=== PATIENT | female | born 1965 | race Caucasian/White ===

== ENCOUNTER → 2020-11-12 | Outpatient (CLI) | payer OTHER ==
--- NOTE | 2020-11-12 11:14 | DIREP ---
PROCEDURE:XRAY HIP MIN 2VW-LT COMPARISON:None. INDICATIONS:M25.552 PAIN IN LEFT HIP FINDINGS: BONES:No acute fracture. JOINTS:Moderate degenerative changes of the left hip. SOFT TISSUES:No suspicious abnormality. OTHER:No additional findings. CONCLUSION: 1. No acute osseous abnormality. 2. Moderate degenerative changes of the left hip. Dictated by: Pradeep Carreno M.D. On 11/12/2020 at 11:12 AM
--- NOTE | 2020-11-12 11:16 | DIREP ---
PROCEDURE:XRAY HIP MIN 2VW-RT COMPARISON:[facility], , XRAY HIP MIN 2VW-LT, 11/12/2020, 10:56 AM. INDICATIONS:M25.551 PAIN IN RIGHT HIP FINDINGS: BONES:No acute fracture. JOINTS:Moderate to severe degenerative changes of the right hip with moderate degenerative changes of the left hip. This is evidenced by joint space narrowing and marginal osteophyte formation. SOFT TISSUES:No suspicious abnormality. OTHER:No additional findings. CONCLUSION: 1. No acute osseous abnormality. 2. Moderate to severe degenerative changes of the right hip with moderate degenerative changes of the left hip. Dictated by: Pradeep Carreno M.D. On 11/12/2020 at 11:13 AM
== END | disposition home or self-care (01) ==
LOC: RAD 10:45
PROVIDERS: ATTEND Nurse Practitioner Family
DX: M16.0 Bilateral primary osteoarthritis of hip (principal); M25.552 Pain in left hip; M25.551 Pain in right hip
CPT/HCPCS: 73502

== ENCOUNTER → 2020-11-21 | Outpatient (CLI) | payer OTHER | END | disposition home or self-care (01) | LOC: NPLAB 13:42 | PROVIDERS: ATTEND Nurse Practitioner Family | DX: N39.0 Urinary tract infection, site not specified (principal) | CPT/HCPCS: 87077; 87086; 87186 ==

== ENCOUNTER → 2020-11-28 | Outpatient (CLI) | payer OTHER ==
[~2020-11-28] MED LIST: LEXISCAN IV ONE
--- NOTE | 2020-11-28 12:45 | PCM.ECHO ---
APPROVED REPORT EXAM: Comprehensive 2D, Doppler, and color-flow Echocardiogram. Patient Location: OUT-PATIENT Indications Mitral Valve Prolapse Non-rheumatic mitral valve prolapse. 2D Dimensions LVOT Diameter 2.35 (1.8-2.4cm) LVEF(%) 52.60 (>50%) M-Mode Dimensions RVDd 1.60 (2.1-3.2cm) Left Atrium(MM) 4.15 (2.5-4.0cm) IVSd 0.95 (0.7-1.1cm) Aortic Root 2.55 (2.2-3.7cm) LVDd 5.40 (4.0-5.6cm) Aortic Cusp Exc 1.55 (1.5-2.0cm) PWd 0.85 (0.7-1.1cm) MV EPSS 0.58 (<0.5cm) IVSs 1.20 cm FS (%) 28.75 % LVDs 3.85 (2.0-3.8cm) ESV(Teich) 63.96 ml PWs 1.10 cm LVEF(%) 54.88 (>50%) Volumes Biplane 2D LV Volumes Biplane 2D LA Volumes LVEDv A4C 146.02 mL LA ESV Index LVESv A4C 69.22 mL Aortic Valve AoV Peak Andrez. 0.90 m/s AoV VTI 24.55 cm AO Peak GR. 3.45 mmHg AO Mean GR. 2.25 mmHg LVOT VTI 23.98 cm LVOT Peak Andrez. 0.90 m/s CARA(VTI)/BSA 4.24 cm2/m2 CARA (VTI) 4.24 cm2 AI P 1/2 Time 450.00 ms Mitral Valve MV E Velocity 1.25m/s MR Peak Gr. 6.30mmHg MV A Velocity 1.10m/s TDI Lateral E' P. V 0.11m/s Medial E' P. V 0.13m/s Pulmonary Valve PV Peak Velocity 0.60m/s PV Peak Grad. 1.40mmHg RVOT VTI 15.18cm Tricuspid Valve TR P. Velocity 2.40m/s RAP ESTIMATE 10.00mmHg TR Peak Gr. 23.83mmHg RVSP 33.83mmHg LEFT VENTRICLE The left ventricle is normal size. The left ventricular systolic function is normal. The left ventricular ejection fraction is within the normal range. There is normal left ventricular wall thickness. There is normal LV segmental wall motion. There is no ventricular septal defect visualized. No left ventricle thrombus noted on this study. LVEF is 55%. RIGHT VENTRICLE The right ventricle is normal size. The right ventricular systolic function is normal. There is normal right ventricular wall thickness. Pacemaker lead is present in the right ventricle. ATRIA The left atrium size is normal. The right atrium size is normal. Pacemaker lead is present in the right atrium. The interatrial septum is intact with no evidence for an atrial septal defect. AORTIC VALVE The aortic valve is normal in structure. There is no aortic valvular stenosis. Moderate aortic regurgitation. There is no aortic valvular vegetation. MITRAL VALVE The mitral valve is normal in structure. There is no mitral valve stenosis. There is no mitral valve regurgitation noted. There is no evidence of mitral valve vegetations. Mitral valve annuloplasty Sewing ring appears intact. TRICUSPID VALVE The tricuspid valve is normal in structure. There is no tricuspid valve stenosis. Severe tricuspid regurgitation. There is no tricuspid valve vegetations. PULMONIC VALVE The pulmonary valve is normal in structure. There is no pulmonic valvular stenosis. Severe pulmonic regurgitation. GREAT VESSELS The aortic root is normal in size. The pulmonary artery is normal. Aortic arch is not well visualized. The IVC is normal in size and collapses >50% with inspiration. PERICARDIUM There is no pericardial effusion. There is no pleural effusion. Other Information Study Quality: Fair <Conclusion> The left ventricular systolic function is normal. LVEF is 55%. Moderate aortic regurgitation. Mitral valve annuloplasty Sewing ring appears intact. Severe tricuspid regurgitation. Severe pulmonic regurgitation. Electronically signed by : LARRY ARREOLA. 11/28/2020 12:45:20
--- NOTE | 2020-11-28 13:52 | STRESS ---
DATE OF SERVICE: 11/28/2020 CARDIAC STRESS TEST INDICATION: Chest pain. Baseline EKG shows paced rhythm with premature ventricular complexes. Stress EKG shows normal sinus rhythm, unchanged from baseline. At the end of recovery, EKG shows paced rhythm, unchanged from baseline. Baseline blood pressure is 122/78 and remained the same during stress. At recovery, the blood pressure was 104/72. Baseline heart rate was 81 beats per minute and marissa to 82 beats per minute during stress. At recovery, the heart rate was 96 beats per minute. Blood pressure and heart rate were appropriate for stress. There were no significant symptoms noted during stress. There were no arrhythmias noted during stress. EKG portion of stress test is negative for myocardial ischemia. Nuclear images were obtained with a resting dose of 10.86 mCi technetium 99 sestamibi and a stress dose of 33.9 mCi technetium 99 sestamibi. Nuclear images show a large area of reversible perfusion defect involving the anterior wall and suggestive of myocardial ischemia. There is no evidence of myocardial infarction. Left ventricular ejection fraction is 59%. EDV is 91 mL, ESV 38 mL. The left ventricle is normal in size. Gated motion images shows normal wall motion across all segments of the left ventricle. TID is 1.25. There is no evidence of diaphragmatic attenuation artifact. IMPRESSION: 1. There is a large area of reversible perfusion defect involving the anterior wall and suggestive of myocardial ischemia. 2. There is no evidence of myocardial infarction. 3. This is an abnormal study. Recommend left heart catheterization. LARRY ARREOLA D.O. DR: SHERLYN/nery JOB# [id number]
== END | disposition home or self-care (01) ==
LOC: RAD 08:52
PROVIDERS: ATTEND Internal Medicine Interventional Cardiology
DX: Z01.818 Encounter for other preprocedural examination (principal); I08.3 Combined rheumatic disorders of mitral, aortic and tricuspid valves; Q25.49 Other congenital malformations of aorta
CPT/HCPCS: 78452; 93017; 93306; A9500; J2785

== ENCOUNTER 2020-12-13 10:56 | Day surgery (SDC) | payer OTHER ==
--- NOTE | 2020-12-04 11:48 | PCM.EKG ---
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
[2020-12-04 12:02] LABS: BASOPHIL % 0.5 % (0.0-0.2); EOSINOPHIL # 0.2 10^3/uL (0.0-0.2); EOSINOPHIL % 2.3 % (0.0-5.0); LYMPHOCYTES # 2.79 10^3/uL1 (1.0-4.8); LYMPHOCYTES % 42.1 % (24.0-44.0); MEAN CORP HGB 31.8 pg (26-34); MONOCYTES # 0.5 10^3/uL (0.3-0.8); MONOCYTES % 7.4 % (5.0-12.0); NEUTROPHIL # 3.2 10^3/uL (1.8-7.7); NEUTROPHILS % 47.5 % (41.0-85.0); PLATELET COUNT 271 10^3/uL (150-400); RED CELL DISTRIBUTION WIDTH 12.5 % (11.5-14.5)
[2020-12-04 12:17] LABS: CARBON DIOXIDE 30.2 mmol/L (20.0-32)
[2020-12-13] VITALS (15 sets, daily range): BP systolic 12–131; BP diastolic 55–76
[~2020-12-13] VITALS: Ht 176.5 cm; Wt 106.6 kg
[~2020-12-13 10:56] MED LIST changes: +FURO-81 PO; +HEPARIN ONE; -LEXISCAN IV ONE; +METO25TA4 PO; +NS 1000ML 1,000 ML ONE; +SUBLIMAZE ONE; +VERSED ONE; +XYLOCAINE ONE
[2020-12-13] MEDS: NS 1000ML 1,000 ML IV SCH (11:40)
[2020-12-13] MEDS ORDERED: MORPHINE SULFATE ONE (14:42)
--- NOTE | 2020-12-13 21:12 | CCRH ---
DATE OF SERVICE: 12/13/2020 INDICATION FOR PROCEDURE: Abnormal cardiac stress test. HISTORY: This is a 55-year-old female who was initially seen in the outpatient setting with symptoms of chest discomfort. She underwent cardiac ischemic workup, which was noted to be abnormal. In view of this, she was set up for cardiac catheterization. Informed consents were obtained. PROCEDURES PERFORMED: 1. Selective coronary angiography. 2. Left ventriculography. 3. Hemostasis established using a TR band. DESCRIPTION OF PROCEDURE: Access was obtained using a 6-Hebrew glide sheath to cannulate the right radial artery. Diagnostic angiography was then carried out using a [place] 4 catheter to engage the left main. The left main was noted to be long and angiographically normal. It bifurcates into left anterior descending artery and the left circumflex artery. The left anterior descending artery is noted to have mild luminal irregularities. It runs in the interventricular groove to the apex to form a type 2 LAD. It gives off 1 large caliber diagonal branch that is noted to have mild luminal irregularities. The left circumflex artery is noted to be nondominant with mild luminal irregularities. It gives off a large caliber obtuse marginal 1 branch that is noted to have mild luminal irregularities. The [place] 4 catheter was then used to engage the RCA. RCA angiography showed a dominant RCA with mild luminal irregularities. The RCA bifurcates distally to an RPL and RPDA branch, both noted to have mild luminal irregularities. The [place] 4 catheter was then exchanged for a pigtail catheter, which was used to cross the aortic valve into the left ventricle. Left ventriculography was performed. LVEF was noted to be 65%. LVEDP was noted to be 9. Upon pullback of the pigtail catheter, there was no gradient across the aortic valve. The pigtail catheter was then taken out and hemostasis was established using a TR band. 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 There were no complications. IMPRESSION: 1. Nonobstructive coronary artery disease. 2. Selective coronary angiography. 3. Left ventriculography. 4. LVEF of 65%. 5. LVEDP of 9. 6. Hemostasis established using a TR band. RECOMMENDATIONS: No coronary intervention is necessary at this time. Lifestyle modification factors have been strongly advised. She will be discharged home today to follow up with me in the office in 2 weeks. LARRY ARREOLA D.O. DR: Santo JOB# [id number]
== END 2020-12-13 18:20 | disposition home or self-care (01) ==
LOC: CCL 10:56
PROVIDERS: ATTEND Internal Medicine Interventional Cardiology
DX: I25.10 Atherosclerotic heart disease of native coronary artery without angina pectoris (principal); I10 Essential (primary) hypertension; I87.2 Venous insufficiency (chronic) (peripheral); I48.0 Paroxysmal atrial fibrillation; M25.551 Pain in right hip; M25.552 Pain in left hip; E66.9 Obesity, unspecified; I37.1 Nonrheumatic pulmonary valve insufficiency; Z88.2 Allergy status to sulfonamides; Z82.5 Family history of asthma and other chronic lower respiratory diseases; Z80.9 Family history of malignant neoplasm, unspecified; Z68.34 Body mass index [BMI] 34.0-34.9, adult; Z79.899 Other long term (current) drug therapy; Z98.51 Tubal ligation status
CPT/HCPCS: 36415; 80053; 85025; 85610; 85730; 93005; 93458; 99152; 99153; C1887 ×2; C1894; J1644 ×2; J2250; J2270; J3010; J7030; Q9967; C1769

== ENCOUNTER 2021-04-25 07:00 | Day surgery (SDC) | payer OTHER ==
[2021-04-23 09:55] VITALS: BP 111/75
--- NOTE | 2021-04-23 10:09 | PCM.EKG ---
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
[2021-04-23 10:17] LABS: BASOPHIL % 0.5 % (0.0-0.2); EOSINOPHIL # 0.1 10^3/uL (0.0-0.2); EOSINOPHIL % 1.8 % (0.0-5.0); LYMPHOCYTES # 2.29 10^3/uL1 (1.0-4.8); LYMPHOCYTES % 36.9 % (24.0-44.0); MEAN CORP HGB 30.5 pg (26-34); MONOCYTES # 0.5 10^3/uL (0.3-0.8); MONOCYTES % 7.9 % (5.0-12.0); NEUTROPHIL # 3.3 10^3/uL (1.8-7.7); NEUTROPHILS % 52.7 % (41.0-85.0); PLATELET COUNT 283 10^3/uL (150-400); RED CELL DISTRIBUTION WIDTH 11.9 % (11.5-14.5)
[2021-04-23 10:38] LABS: CALCIUM 8.8 mg/dL (8.4-10.5); CARBON DIOXIDE 26.6 mmol/L (20.0-32)
[~2021-04-25] VITALS: Ht 176.5 cm; Wt 107.0 kg
[~2021-04-25 07:00] MED LIST changes: +CETACAINE SPRAY TP ONE; -HEPARIN ONE; -VERSED ONE; -XYLOCAINE ONE
[2021-04-25 07:10] VITALS: BP 128/53
[2021-04-25] MEDS: NS 1000ML 1,000 ML IV SCH (07:45)
[2021-04-25 09:51] VITALS: BP 123/67
[2021-04-25 10:05] VITALS: BP 108/69
[2021-04-25 10:20] VITALS: BP 108/69
== END 2021-04-25 11:10 | disposition home or self-care (01) ==
LOC: CCL 07:00
PROVIDERS: ATTEND Internal Medicine Interventional Cardiology
DX: I37.1 Nonrheumatic pulmonary valve insufficiency (principal); I48.0 Paroxysmal atrial fibrillation; I10 Essential (primary) hypertension; I87.2 Venous insufficiency (chronic) (peripheral); E66.9 Obesity, unspecified; Z86.16 Personal history of COVID-19; Z98.51 Tubal ligation status; Z98.890 Other specified postprocedural states; Z80.9 Family history of malignant neoplasm, unspecified; Z82.5 Family history of asthma and other chronic lower respiratory diseases; Z86.718 Personal history of other venous thrombosis and embolism; Z79.01 Long term (current) use of anticoagulants; Z68.34 Body mass index [BMI] 34.0-34.9, adult
CPT/HCPCS: 36415; 80053; 85025; 85610; 85730; 93005; 93312; 93325; 99152; 99153; J3010; J7030; 93318; C8925

== ENCOUNTER → 2021-06-17 | Outpatient (CLI) | payer OTHER ==
[~2021-06-17] MED LIST changes: -CETACAINE SPRAY TP ONE; -NS 1000ML 1,000 ML ONE; -SUBLIMAZE ONE
--- NOTE | 2021-06-18 02:01 | PRP ---
DATE OF PROCEDURE: 06/17/2021 DICTATOR NAME: LARRY ARREOLA DO VENOUS MAPPING ULTRASOUND INDICATION: Chronic venous insufficiency. RIGHT LOWER EXTREMITY: The right greater saphenous vein measures 7 mm in its maximum diameter. Significant reflux is noted in the right GSV with maximum reflux of 7.3 seconds. The right small saphenous vein measures 5 mm in its maximum diameter. Significant reflux is noted in the right small saphenous vein with maximum reflux of 2 seconds. There is no evidence of deep venous thrombosis in the right lower extremity. LEFT LOWER EXTREMITY: The left greater saphenous vein measures 7 mm in its maximum diameter. Significant reflux is noted in the left GSV with maximum reflux of 7.3 seconds. The left small saphenous vein measures 5 mm in its maximum diameter. Significant reflux is noted in the left small saphenous vein with maximum reflux of 1.3 seconds. There is no evidence of deep venous thrombosis in the left lower extremity. IMPRESSION: 1. The right greater saphenous vein is normal sized but displays pathological reflux. 2. The right small saphenous vein is severely dilated and displays pathological reflux. 3. The left greater saphenous vein is normal sized but displays pathological reflux. 4. The left small saphenous vein is severely dilated and displays pathological reflux. 5. There is no evidence of deep venous thrombosis in the bilateral lower extremities. RECOMMENDATIONS: Conservative measures including the use of compression stockings, leg elevation and exercise are recommended if clinically indicated. Mario LAMAS D.O. DR: SHAUN TID: [id number] RECEIPT: [id number]
== END | disposition home or self-care (01) ==
LOC: RAD 16:16
PROVIDERS: ATTEND Internal Medicine Interventional Cardiology
DX: I83.93 Asymptomatic varicose veins of bilateral lower extremities (principal); I87.2 Venous insufficiency (chronic) (peripheral)
CPT/HCPCS: 93970

== ENCOUNTER → 2022-04-28 | Outpatient (CLI) | payer OTHER ==
--- NOTE | 2022-04-28 10:27 | DIREP ---
PROCEDURE:CHEST 2 VIEWS COMPARISON:None. INDICATIONS:R06.02 SOB, J45.991 COUGH VARIANT ASTHMA FINDINGS: LUNGS/PLEURA:No significant pulmonary parenchymal abnormalities. No effusions. VASCULATURE:Normal. Unremarkable pulmonary vasculature. CARDIAC:Left-sided pacemaker is seen with median sternotomy changes with the heart size normal. MEDIASTINUM:Normal. No visible mass or adenopathy. BONES:Normal. No fracture or visible bony lesion. OTHER:Negative. CONCLUSION:Left-sided pacemaker and previous sternotomy changes without acute cardiopulmonary abnormality seen. Dictated by: Joselito Warner M.D. on 04/28/2022 at 10:25 AM
== END | disposition home or self-care (01) ==
LOC: RT 09:28
PROVIDERS: ATTEND Nurse Practitioner Family
DX: R06.02 Shortness of breath (principal); J45.991 Cough variant asthma; Z95.0 Presence of cardiac pacemaker
CPT/HCPCS: 71046; 94010

== ENCOUNTER → 2022-05-12 | Outpatient (CLI) | payer OTHER ==
--- NOTE | 2022-05-12 16:08 | DIREP ---
PROCEDURE:US PELVIC FOLLOWED BY TRANSVAGINAL COMPARISON:None. INDICATIONS:POSTMENOPAUSAL BLEEDING TECHNIQUE:Pelvic ultrasound using transabdominal technique. Endovaginal images were also obtained for better assessment of the uterus and adnexa. FINDINGS: LMP: May 12, 2022 UTERUS:Size is 8.7 x 5.1 x 6.3 cm. The myometrium is homogeneous. ENDOMETRIUM:Thickness is 10 mm. RIGHT OVARY:Not visualized due to bowel gas shadowing, or atrophy. No right adnexal mass demonstrated. LEFT OVARY:Not visualized due to bowel gas shadowing, or atrophy. No left adnexal mass demonstrated. CUL-DE-SAC:Normal. OTHER:Negative. CONCLUSION:Endometrial thickness is greater than expected for a postmenopausal female. Gynecological consultation and/or endometrial biopsy is recommended to exclude underlying neoplasm. Dictated by: [facility] Physician on 05/12/2022 at 02:58 PM Giovanny
--- NOTE | 2022-05-13 09:23 | DIREP ---
PROCEDURE:BONE DENSITY PERIPHERAL COMPARISON: COMPARISON: INDICATIONS:Z13.820 SCREENING OSTEOPOROSIS COMPARISON: FINDINGS: LUMBAR SPINE ALIGNMENT: SURGERY:No evidence of prior surgery is identified. DISKS:Normal. VERTEBRAE:Normal. LEFT HIP SURGERY:No evidence of prior surgery is identified. LUMBAR VERTEBRAE: Vertebra BMD(g/cm^2) T-Score L1 0.940 -1.6 L2 1.187 -0.2 L3 1.190 -0.2 L4 1.069 -1.2 LEFT FOREARM: Region BMD(g/cm^2) T-Score Distal 1/3 0.947 0.7 Ultradistal 0.382 -1.9 Total 0.667 -0.3 SUMMARY Region BMD(g/cm^2) T-Score Classification AP Spine(L1-L4) 1.102 -0.8 Normal Femoral Neck(Left) 0.973 Total Hip(Left) 0.957 -0.4 Normal CONCLUSION: 1. Normal bone mineral density of the lumbar spine. 2. Normal bone mineral density of the left forearm overall. Dictated by: David Minor M.D. on 05/13/2022 at 09:19 AM
== END | disposition home or self-care (01) ==
LOC: RAD 13:18
PROVIDERS: ATTEND Nurse Practitioner Women's Health
DX: M85.88 Other specified disorders of bone density and structure, other site (principal); N95.0 Postmenopausal bleeding
CPT/HCPCS: 76830; 76856; 77080

== ENCOUNTER → 2022-05-29 | Outpatient (CLI) | payer OTHER ==
--- NOTE | 2022-05-29 13:44 | PCM.ECHO ---
APPROVED REPORT EXAM: Comprehensive 2D, Doppler, and color-flow Echocardiogram. Patient Location: OUT-PATIENT Indications Nonrheumatic Mitral valve prolapse 2D Dimensions LVOT Diameter 2.58 (1.8-2.4cm) LVEF(%) 65.82 (>50%) M-Mode Dimensions RVDd 2.45 (2.1-3.2cm) Left Atrium(MM) 4.45 (2.5-4.0cm) IVSd 0.75 (0.7-1.1cm) Aortic Root 2.95 (2.2-3.7cm) LVDd 5.25 (4.0-5.6cm) Aortic Cusp Exc 2.25 (1.5-2.0cm) PWd 0.55 (0.7-1.1cm) MV EPSS 0.66 (<0.5cm) IVSs 1.30 cm FS (%) 28.85 % LVDs 3.70 (2.0-3.8cm) ESV(Teich) 59.43 ml PWs 1.15 cm LVEF(%) 55.15 (>50%) Volumes Biplane 2D LV Volumes Biplane 2D LA Volumes LVEDv A4C 124.89 mL LA ESV Index LVESv A4C 42.69 mL Aortic Valve AoV Peak Andrez. 0.85 m/s AoV VTI 19.40 cm AO Peak GR. 3.05 mmHg AO Mean GR. 2.25 mmHg LVOT VTI 18.49 cm LVOT Peak Andrez. 0.73 m/s CARA(VTI)/BSA 4.98 cm2/m2 CARA (VTI) 4.98 cm2 Mitral Valve MV E Velocity 1.45m/s MR Peak Gr. 7.85mmHg TDI Lateral E' P. V 0.14m/s Medial E' P. V 0.13m/s Pulmonary Valve PV Peak Velocity 0.50m/s PV Peak Grad. 1.10mmHg RVOT VTI 12.55cm Tricuspid Valve TR P. Velocity 1.95m/s RAP ESTIMATE 10.00mmHg TR Peak Gr. 15.58mmHg RVSP 25.58mmHg LEFT VENTRICLE The left ventricle is normal size. The left ventricular systolic function is normal. The left ventricular ejection fraction is within the normal range. There is normal left ventricular wall thickness. There is normal LV segmental wall motion. The left ventricular diastolic function is normal. There is no ventricular septal defect visualized. No left ventricle thrombus noted on this study. LVEF is 60-65%. RIGHT VENTRICLE The right ventricle is normal size. The right ventricular systolic function is normal. There is normal right ventricular wall thickness. Pacemaker lead is present in the right ventricle. ATRIA The left atrium size is normal. The right atrium size is normal. Pacemaker lead is present in the right atrium. The interatrial septum is intact with no evidence for an atrial septal defect. AORTIC VALVE The aortic valve is normal in structure. There is no aortic valvular stenosis. Mild to moderate aortic regurgitation. There is no aortic valvular vegetation. MITRAL VALVE There is no mitral valve stenosis. Mild mitral regurgitation. There is no evidence of mitral valve vegetations. s/p Mitral annuloplasty ring. Sewing ring appears intact TRICUSPID VALVE The tricuspid valve is normal in structure. There is no tricuspid valve stenosis. Moderate to severe tricuspid regurgitation There is no tricuspid valve vegetations. PULMONIC VALVE The pulmonary valve is normal in structure. There is no pulmonic valvular stenosis. Moderate to severe pulmonic regurgitation. There is no pulmonic valve vegetations. GREAT VESSELS The aortic root is normal in size. Pulmonary artery is not well visualized. Aortic arch is not well visualized. The IVC is normal in size and collapses >50% with inspiration. PERICARDIUM There is no pericardial effusion. There is no pleural effusion. Other Information Study Quality: Fair <Conclusion> The left ventricular systolic function is normal. LVEF is 60-65%. Mild to moderate aortic regurgitation. s/p Mitral annuloplasty ring. Sewing ring appears intact Mild mitral regurgitation. Moderate to severe tricuspid regurgitation Moderate to severe pulmonic regurgitation. Electronically signed by : LARRY ARREOLA. 05/29/2022 13:43:42
== END | disposition home or self-care (01) ==
LOC: RAD 12:45
PROVIDERS: ATTEND Nurse Practitioner Family
DX: I08.8 Other rheumatic multiple valve diseases (principal)
CPT/HCPCS: 93306

== ENCOUNTER → 2022-06-16 | Outpatient (CLI) | payer OTHER ==
[~2022-06-16] MED LIST changes: +LEXISCAN IV ONE
--- NOTE | 2022-06-17 03:57 | STRESS ---
DATE OF SERVICE: 06/16/2022 DICTATOR NAME: LARRY MAXWELL CARDIAC STRESS TEST INDICATION: Chest pain. FINDINGS: Baseline EKG shows paced rhythm. Stress EKG shows normal sinus rhythm with underlying paced rhythm with ST depressions in the inferolateral wall suggestive of myocardial ischemia. At recovery, EKG shows paced rhythm. Baseline heart rate is 79 beats per minute and dropped to 74 beats per minute during stress. At the end of recovery, the heart rate was 97 beats per minute. Baseline blood pressure is 116/94 and remained the same during stress. At the end of recovery, the blood pressure is 110/76. Blood pressure and heart rate are appropriate for stress. There were no significant symptoms noted during stress. There were no arrhythmias noted during stress. Underlying paced rhythm is noted. EKG portion of stress test revealed inferolateral ST changes suggestive of myocardial ischemia. Nuclear images were obtained with a rest dose of 11.7 mCi technetium-99 sestamibi, and a stress dose of 35.1 mCi technetium 99 sestamibi. Nuclear images reveal a moderate-sized area of reversible perfusion defect involving the apical wall suggestive of myocardial ischemia. There is no evidence of myocardial infarction. Left ventricular ejection fraction is 67%. EDV is 59 mL, ESV is 19 mL. The left ventricle is normal in size. Gated motion images shows normal wall motion across all segments of the left ventricle. TID is 1.04. There is no evidence of diaphragmatic attenuation artifact. IMPRESSION: 1. There is a moderate-sized area of reversible perfusion defect involving the apical wall suggestive of myocardial ischemia. 2. EKG portion of stress test revealed inferolateral ischemia. 3. There is no evidence of myocardial infarction. 4. This is an abnormal study. Recommend left heart catheterization. Mario LAMAS D.O. DR: TERI TID: [id number] RECEIPT: [id number]
== END | disposition home or self-care (01) ==
LOC: RAD 10:52
PROVIDERS: ATTEND Internal Medicine Interventional Cardiology
DX: R94.31 Abnormal electrocardiogram [ECG] [EKG] (principal); R06.02 Shortness of breath
CPT/HCPCS: 78452; 93017; J2785; A9500

== ENCOUNTER 2022-06-30 06:55 | Day surgery (SDC) | payer OTHER ==
[2022-06-25 16:22] LABS: BASOPHIL % 0.3 % (0.0-0.2); EOSINOPHIL # 0.1 10^3/uL (0.0-0.2); EOSINOPHIL % 1.7 % (0.0-5.0); LYMPHOCYTES # 2.94 10^3/uL1 (1.0-4.8); LYMPHOCYTES % 42.4 % (24.0-44.0); MEAN CORP HGB 30.2 pg (26-34); MONOCYTES # 0.5 10^3/uL (0.3-0.8); MONOCYTES % 7.8 % (5.0-12.0); NEUTROPHIL # 3.3 10^3/uL (1.8-7.7); NEUTROPHILS % 47.7 % (41.0-85.0); PLATELET COUNT 268 10^3/uL (150-400); RED CELL DISTRIBUTION WIDTH 12.4 % (11.5-14.5)
[2022-06-25 16:39] LABS: CARBON DIOXIDE 30.8 mmol/L (20.0-32)
[~2022-06-30] VITALS: Ht 176.5 cm; Wt 108.0 kg
[2022-06-30] VITALS (10 sets, daily range): BP systolic 95–128; BP diastolic 56–69
[~2022-06-30 06:55] MED LIST changes: +ASPI-667 PO; -LEXISCAN IV ONE; +LORA-447 PO; +NS 1000ML 1,000 ML IV SCH; +NS 1000ML 1,000 ML ONE
[2022-06-30] MEDS ORDERED: VERSED ONE (07:41)
[2022-06-30] MEDS ORDERED: XYLOCAINE ONE (07:41)
[2022-06-30] MEDS ORDERED: SUBLIMAZE ONE (07:41)
--- NOTE | 2022-06-30 07:41 | PCM.EKG ---
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
[2022-06-30 07:44] LABS: CARBON DIOXIDE 31.4 mmol/L (20.0-32)
--- NOTE | 2022-06-30 11:20 | [facility]H ---
DATE OF SERVICE: 06/30/2022 DICTATOR NAME: LARRY ARREOLA DO CARDIAC INDICATIONS: Abnormal cardiac stress test. This is a 57-year-old female who was evaluated in the outpatient setting where she underwent cardiac ischemic workup that was noted to be abnormal. She was then set up for left heart catheterization after informed consent were obtained. PROCEDURES PERFORMED: 1. Selective coronary angiography. 2. Left ventriculography. 3. Hemostasis established using a 6-Rwandan Mynx control. PROCEDURE IN DETAIL: Access was obtained using a 4-[place]and[place] micropuncture sheath to cannulate the right common femoral artery. The 4-Rwandan sheath was then upsized to a 6-Rwandan regular short sheath. Diagnostic angiography was then carried out using the [place] left catheter to engage the left main. The left main was noted to be long and angiographically normal. It bifurcates into left anterior descending artery and a left circumflex artery. The left anterior descending artery is noted to have mild luminal irregularities. It runs in the interventricular groove reaching the apex to form a type 2 LAD. It gives rise to 1 diagonal branch that is noted to have mild luminal irregularities. The left circumflex artery is noted to be nondominant and with mild luminal irregularities. It gives rise to 2 obtuse marginal branches that are noted to have mild luminal irregularities. The [place] left catheter was then exchanged for a [place] right catheter, which was used to engage the RCA. RCA angiography revealed a dominant RCA with mild luminal irregularities. The RCA bifurcates distally to a right posterior descending artery and a right posterolateral artery. Both vessels are noted to have mild luminal irregularities. The [place] right catheter was then exchanged for a pigtail catheter, which was used to cross the aortic valve into the left ventricle. Left ventriculography was performed. LVEF was noted to be 60%. LVEDP was noted to be 12. Upon pullback of the pigtail catheter, there was no gradient across the aortic valve. Pigtail catheter was then taken out and hemostasis was established using a 6-Rwand[place] Mynx control. 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 There were no complications. IMPRESSION: 1. Nonobstructive coronary artery disease. 2. Selective coronary angiography. 3. Left ventriculography. 4. Left ventricular ejection fraction of 60%. 5. Left ventricular end-diastolic pressure of 12. 6. Hemostasis established using a 6-[place] Mynx control. RECOMMENDATIONS: No coronary intervention is necessary at this time. Lifestyle modification factors have been strongly advised. She will be discharged home today to follow up with me in the clinic in 2-3 weeks. Mario LAMAS D.O. DR: NASIR GARCIA: [id number] RECEIPT: [id number]
== END 2022-06-30 12:45 | disposition home or self-care (01) ==
LOC: SDC 06:55
PROVIDERS: ATTEND Internal Medicine Interventional Cardiology
DX: I25.10 Atherosclerotic heart disease of native coronary artery without angina pectoris (principal); I37.1 Nonrheumatic pulmonary valve insufficiency; I48.0 Paroxysmal atrial fibrillation; I34.1 Nonrheumatic mitral (valve) prolapse; I87.2 Venous insufficiency (chronic) (peripheral); E66.9 Obesity, unspecified; R53.83 Other fatigue; Z98.890 Other specified postprocedural states; Z86.16 Personal history of COVID-19; Z98.51 Tubal ligation status; Z82.5 Family history of asthma and other chronic lower respiratory diseases; Z80.9 Family history of malignant neoplasm, unspecified; Z68.34 Body mass index [BMI] 34.0-34.9, adult; Z79.899 Other long term (current) drug therapy
CPT/HCPCS: 80053 ×2; 85025; 36415 ×2; 85610; 85730; 93458; 99153; 99152; 93005; J7030; J1644; C1894 ×2; J2250; J3010; C1769; C1760; Q9967

== ENCOUNTER → 2023-07-30 | Outpatient (CLI) | payer BC ==
[~2023-07-30] MED LIST changes: -NS 1000ML 1,000 ML IV SCH; -NS 1000ML 1,000 ML ONE
== END | disposition home or self-care (01) ==
LOC: NPLAB 17:00
PROVIDERS: ATTEND Nurse Practitioner Family
DX: R30.0 Dysuria (principal)
CPT/HCPCS: 87077; 87086; 87186